=== PATIENT | female | born 2000 | race Two or more races ===

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

== ENCOUNTER 2021-11-16 20:46 | Emergency (ER) | payer MEDICAID, OTHER ==
[~2021-11-16] VITALS: Ht 167.6 cm; Wt 108.9 kg
[2021-11-16 21:25] LABS: Basophils # (auto) 0.1 10 ^3/uL (0-0.2); Basophils % (auto) 1.1 % (0.0-2.0); Eosinophils # (auto) 0.1 10 ^3/uL (0-0.8); Hematocrit 36.8 % (36.0-46.0); Hemoglobin 12.4 g/dL (12.2-16.2); Lymphocytes # (auto) 2.5 10 ^3/uL (0.4-5.4); Lymphocytes % (auto) 33.7 % (10.0-50.0); Mean Corpuscular Hemoglobin 29.3 pg (28.0-32.0); Mean Corpuscular Hgb Conc. 33.8 g/dL (32.0-36.0); Mean Corpuscular Volume 86.8 fL (80.0-100.0); Monocytes # (auto) 0.5 10 ^3/uL (0-1.3); Monocytes % (auto) 6.9 % (0.0-12.0); Neutrophils # (auto) 4.3 10 ^3/uL (1.6-8.6); Neutrophils % (auto) 57.3 % (37.0-80.0); Nucleated Red Blood Cells % 0.2 %; Red Blood Cells 4.24 10^6/uL (4.0-5.20); White Blood Cell 7.5 10^3/uL (4.4-10.8)
[2021-11-16 21:41] LABS: Calcium 9.3 mg/dL (8.5-10.1); Potassium 4.1 mmol/L (3.5-5.1)
[2021-11-16 21:44] LABS: BUN/Creatinine Ratio 14.5; Bilirubin, Total 0.3 mg/dL (0.2-1.0); Total Protein 7.6 g/dL (6.4-8.2)
[2021-11-16 23:06] LABS: Urine Bacteria FEW /hpf (None Seen); Urine Blood Negative /uL (Negative); Urine Specific Gravity 1.025 (1.001-1.035); Urine WBC 14 /hpf (0 - 5)
[2021-11-17] MEDS ORDERED: TRANEXAMIC ACID 1,000 MG in SODIUM CHL 0.9% 100 ML IV ONE (00:30)
[2021-11-17] MEDS ORDERED: TRANEXAMIC ACID 10 ML ONE (02:12)
[2021-11-17 02:40] VITALS: BP 109/54
== END 2021-11-17 03:17 | disposition home or self-care (01) ==
LOC: ER 20:46 → EEVIPCON 20:46 → ER 11-17 03:17
DX: N92.0 Excessive and frequent menstruation with regular cycle (principal)
CPT/HCPCS: 36415; 76830; 76856; 80053; 81001; 84702; 85025; 96365

== ENCOUNTER 2025-01-21 21:14 | Emergency (ER) | payer MEDICAID ==
[~2025-01-21] VITALS: Ht 167.6 cm; Wt 105.0 kg
[2025-01-21] MEDS: ONDANSETRON HCL 4 MG/2 ML VIAL IV ONE (22:51)
[2025-01-21] MEDS: MORPHINE SULFATE 4 MG/ML SYR/VIAL IV ONE (22:52)
[2025-01-21] MEDS: IOHEXOL 300 MG/ML 100ML BOTTLE IJ ONE (22:53)
[2025-01-21] MEDS: SODIUM CHLORIDE 0.9% 1,000 ML IVB ONE (22:53)
--- NOTE | 2025-01-21 22:55 | DVH ---
Exam: CT CT AB PEL WITH IV CON ONLY History: abd pain Comparison Study: None Technique: Multidetector spiral CT of the abdomen was performed from lung bases to pubic symphysis. A xial imaging was performed with intravenous contrast following the uneventful administration of 100 m l Omnipaque 300. Coronal and sagittal multiplanar reformats were obtained from the axial data set by the technologist. Radiation Dose : 1. Abdomen/Pelvis: CTDIvol 25.48 mGy, DLP 1681.48 mGy*cm. Findings: Lung Bases: Lung bases are clear. Visualized portions of the heart and pericardium are unremarkable. Liver: The liver is normal in size. No focal lesions. Gallbladder and Biliary Tree: Prior cholecystectomy. Spleen: Unremarkable Pancreas: The pancreas enhances normally and there are no focal lesions. The main pancreatic duct is not dilated Adrenal Glands: Unremarkable Kidneys: Kidneys enhance symmetrically. No calculi or hydronephrosis. GI tract: There is no bowel obstruction. The appendix is normal. There is submucosal fat deposition within the transverse and ascending colon suggesting chronic inflammation. Peritoneum/mesentery/retroperitoneum. No evidence of free intraperitoneal air. No ascites. No evidenc e of suspicious lymphadenopathy. Abdominal Wall: Unremarkable. Vasculature: Abdominal aorta and main branches are unremarkable. Normal vascular enhancement. Urinary Bladder: Grossly unremarkable for degree of distention. Pelvic Organs: There is a 2 cm involuting right ovarian cyst. Musculoskeletal: No aggressive focal bony lesions, acute fractures or dislocation. IMPRESSION: 1. No acute abdominal or pelvic findings. 2. Incidental findings as detailed.
[2025-01-21 22:58] LABS: Basophils # (auto) 0 10 ^3/uL (0-0.2); Basophils % (auto) 0.5 % (0.0-2.0); Eosinophils # (auto) 0 10 ^3/uL (0-0.8); Eosinophils % (auto) 0.6 % (0.0-7.0); Hematocrit 36.8 % (36.0-46.0); Hemoglobin 12.6 g/dL (12.2-16.2); Lymphocytes # (auto) 2.2 10 ^3/uL (0.4-5.4); Lymphocytes % (auto) 26.5 % (10.0-50.0); Mean Corpuscular Hgb Conc. 34.2 g/dL (32.0-36.0); Mean Corpuscular Volume 87.5 fL (80.0-100.0); Monocytes # (auto) 0.7 10 ^3/uL (0-1.3); Monocytes % (auto) 8.3 % (0.0-12.0); Neutrophils # (auto) 5.2 10 ^3/uL (1.6-8.6); Neutrophils % (auto) 64.1 % (37.0-80.0); Platelet Count (auto) 223 10^3/uL (140-450); Red Cell Distribution Width 12.8 % (11.8-14.3); White Blood Cell 8.1 10^3/uL (4.4-10.8)
[2025-01-21 23:11] LABS: Albumin 4.5 g/dL (3.2-4.8); Alkaline Phosphatase 94 U/L (46-116); Anion Gap 10 (5-15); BUN/Creatinine Ratio 8.4 (10.0-20.0); Bilirubin, Total 0.7 mg/dL (0.2-1.0); Calcium 9.3 mg/dL (8.7-10.4); Carbon Dioxide 25 mmol/L (20-31); Chloride 104 mmol/L (98-107); Glucose 98 mg/dL (74-106); Lipase 29 U/L (12-53); Sodium 139 mmol/L (136-145)
[2025-01-21 23:12] LABS: Alanine Aminotransferase 126 U/L (7-40); Aspartate Aminotransferase 67 U/L (<34); Blood Urea Nitrogen 7 mg/dL (9-23); Potassium 3.4 mmol/L (3.5-5.1)
[2025-01-21] MEDS ORDERED: GABA300T4 PO (23:32)
--- NOTE | 2025-01-22 00:19 | ED.PDOC ---
History of Present Illness HPI Comments 24 y/o obese F, with a history of cholecystectomy and pancreatitis, presents with nonradiating, epigastric abdominal pain. Patient endorses on unprovoked and sudden onset of symptoms, this evening, but has had similar pain for the past few days. She states on being evaluated at [facility] and being diagnosed with Pancreatitis but was never treated. Denies any nausea, vomiting, diarrhea, constipation, urinary symptoms, fever, chills, or further associated symptoms. Chief Complaint: Abdominal Pain Time Seen by MD: 22:00 Reviewed Notes: Nurses Notes, Medications, Allergies Allergies: Coded Allergies: NO KNOWN ALLERGIES (Unverified , 11/01/17) Home Meds Active Scripts Gabapentin (Once-Daily) (Gabapentin) 300 Mg Tab, 300 MG PO Q6HP PRN, #60 TAB Prov:MARGA ECHEVERRIA MD 01/21/25 Information Source: Patient Mode of Arrival: Ambulatory Severity: Moderate Timing: Hours Duration: Since onset Prehospital treatment: None Past Medical History PAST MEDICAL HISTORY: Anemia Past Medical History (Other): pancreatitis Surgical History: Cholecystectomy TELETYPE OR VARITYPE KEYBOARD OPERATOR History: No Pertinent TELETYPE OR VARITYPE KEYBOARD OPERATOR History Family History Family History: Reviewed,noncontributory to illness Social History Smoker: Non-Smoker Alcohol: Denies ETOH Use Drugs: Denies Drug Use Lives In: Home All Other Systems: Reviewed and Negative (Comprehensive systems review obtained and negative except for what is stated in the HPI.) Physical Exam General Appearance: Moderate Distress, Obese HEENT: Normal ENT Inspection, Pharynx Normal, TMs Normal Neck: Full Range of Motion, Non-Tender, Normal, Normal Inspection Respiratory: Chest Non-Tender, Lungs Clear, No Accessory Muscle Use, No Respiratory Distress, Normal Breath Sounds Cardiovascular: No Edema, No JVD, No Murmur, No Gallop, Normal Peripheral Pulses, Regular Rate/Rhythm Breast Exam: Deferred Gastrointestinal: Epigastric (tenderness ), No Organomegaly, No Pulsatile Mass, Normal Bowel Sounds, Soft, Tenderness (epigastric region) Genitalia: Deferred Pelvic: Deferred Rectal: Deferred Extremities: No calf tenderness, Normal capillary refill, Normal inspection, Normal range of motion, Non-tender, No pedal edema Musculoskeletal : Apperance: Normal Neurologic: Alert, petroleum transport driver II-XII nml as Tested, No Motor Deficits, Normal Affect, Normal Mood, No Sensory Deficits Cerebellar Function: Normal Reflexes: Normal Skin: Dry, Normal Color, Warm Lymphatic: No Adenopathy Was a procedure done? Was a procedure done?: No Differential Dx Considerations may include: gastritis, gastroenteritis, GERD, PUD, cholelithiasis, among others X-Ray, Labs, Meds, VS Vital Signs Date Time Temp Pulse Resp B/P (MAP) Pulse Ox O2 Delivery O2 Flow Rate FiO2 01/21/25 22:52 81 16 110/58 01/21/25 21:49 99.9 114 20 138/86 (103) 97 99.9 Lab Test 01/21/25 22:35 Range/Units White Blood Count 8.1 4.4-10.8 10^3/uL Red Blood Count 4.20 4.0-5.20 10^6/uL Hemoglobin 12.6 12.2-16.2 g/dL Hematocrit 36.8 36.0-46.0 % Mean Corpuscular Volume 87.5 80.0-100.0 fL Mean Corpuscular Hemoglobin 30.0 28.0-32.0 pg Mean Corpuscular Hemoglobin Concent 34.2 32.0-36.0 g/dL Red Cell Distribution Width 12.8 11.8-14.3 % Platelet Count 223 140-450 10^3/uL Mean Platelet Volume 9.5 6.9-10.8 fL Neutrophils (%) (Auto) 64.1 37.0-80.0 % Lymphocytes (%) (Auto) 26.5 10.0-50.0 % Monocytes (%) (Auto) 8.3 0.0-12.0 % Eosinophils (%) (Auto) 0.6 0.0-7.0 % Basophils (%) (Auto) 0.5 0.0-2.0 % Neutrophils # (Auto) 5.2 1.6-8.6 10 ^3/uL Lymphocytes # (Auto) 2.2 0.4-5.4 10 ^3/uL Monocytes # (Auto) 0.7 0-1.3 10 ^3/uL Eosinophils # (Auto) 0 0-0.8 10 ^3/uL Basophils # (Auto) 0 0-0.2 10 ^3/uL Nucleated Red Blood Cells 0.0 % Sodium Level 139 136-145 mmol/L Potassium Level 3.4 L 3.5-5.1 mmol/L Chloride Level 104 98-107 mmol/L Carbon Dioxide Level 25 20-31 mmol/L Anion Gap 10 5-15 Blood Urea Nitrogen 7 L 9-23 mg/dL Creatinine 0.83 0.550-1.02 mg/dL Glomerular Filtration Rate Calc 102 >90 mL/min BUN/Creatinine Ratio 8.4 L 10.0-20.0 Serum Glucose 98 74-106 mg/dL Calcium Level 9.3 8.7-10.4 mg/dL Total Bilirubin 0.7 0.2-1.0 mg/dL Aspartate Amino Transferase (AST) 67 H <34 U/L Alanine Aminotransferase (ALT) 126 H 7-40 U/L Alkaline Phosphatase 94 46-116 U/L Total Protein 7.0 5.7-8.2 g/dL Albumin 4.5 3.2-4.8 g/dL Lipase 29 12-53 U/L Current Medications Medications (Trade) Dose Ordered Sig/Toño Route Start Time Stop Time Status Last Admin Ondansetron HCl (Zofran) 4 mg ONCE ONCE IV 01/21/25 22:15 01/21/25 22:16 DC 01/21/25 22:51 Sodium Chloride 1,000 ml @ 1,000 mls/hr Q1H ONCE IVB 01/21/25 22:15 01/21/25 23:14 DC 01/21/25 22:53 Morphine Sulfate 4 mg ONCE ONCE IV 01/21/25 22:15 01/21/25 22:16 DC 01/21/25 22:52 [place] [address] Ph: [phone] DIAGNOSTIC IMAGING Diagnostic Imaging Report : [id number] Signed PATIENT: TRA JACOBCCT: [id number] UNIT: [id number] : 2000 LOC: ER ROOM / BED: / AGE / SEX: 24 / F ADM STATUS: REG ER SERVICE 05 ORDERING PHYSICIAN: MARGA ECHEVERRIA MD PROCEDURE(s): ABPLIV - CT AB PEL WITH IV CON ONLY REASON: abd pain ORDER NUMBER(s): [id number], ACCESSION NUMBER(s): [id number] Exam: CT CT AB PEL WITH IV CON ONLY History: abd pain Comparison Study: None Technique: Multidetector spiral CT of the abdomen was performed from lung bases to pubic symphysis. Axial imaging was performed with intravenous contrast following the uneventful administration of 100 ml Omnipaque 300. Coronal and sagittal multiplanar reformats were obtained from the axial data set by the technologist. Radiation Dose : 1. Abdomen/Pelvis: CTDIvol 25.48 mGy, DLP 1681.48 mGy*cm. Findings: Lung Bases: Lung bases are clear. Visualized portions of the heart and pericardium are unremarkable. Liver: The liver is normal in size. No focal lesions. Gallbladder and Biliary Tree: Prior cholecystectomy. Spleen: Unremarkable Pancreas: The pancreas enhances normally and there are no focal lesions. The main pancreatic duct is not dilated Adrenal Glands: Unremarkable Kidneys: Kidneys enhance symmetrically. No calculi or hydronephrosis. GI tract: There is no bowel obstruction. The appendix is normal. There is submucosal fat deposition within the transverse and ascending colon suggesting chronic inflammation. Peritoneum/mesentery/retroperitoneum. No evidence of free intraperitoneal air. No ascites. No evidence of suspicious lymphadenopathy. Abdominal Wall: Unremarkable. Vasculature: Abdominal aorta and main branches are unremarkable. Normal vascular enhancement. Urinary Bladder: Grossly unremarkable for degree of distention. Pelvic Organs: There is a 2 cm involuting right ovarian cyst. Musculoskeletal: No aggressive focal bony lesions, acute fractures or dislocation. IMPRESSION: 1. No acute abdominal or pelvic findings. 2. Incidental findings as detailed. ATED BY: YAAKOV POWELL MD DICTATED DATE/TIME: 01/21/252254 SIGNED BY: YAAKOV POWELL MD SIGNED DATE/TIME: 01/21/252254 CC: Time of 1ST Reevaluation: 00:15 Reevaluation 1ST: Improved Patient Education/Counseling: Diagnosis, Treatment, Need For Follow Up Family Education/Counseling: No Family Present SEPSIS Sepsis Screen Date sepsis recognized/suspect: Jan 21, 2025 Time Sepsis recognized/suspect: 2148 Recent Procedure: No On Antibiotic Therapy: No Respiratory Rate >20: No Heart Rate >90: Yes Temp<36 C (96.8 F) or >38.3 C: No SBP <90 or MAP <65 mmHG: No New Acute Mental Status Change: No Is the patient on CPAP, BIPAP,: No Orders/Vitals/Labs Physician Orders Ct Ab Pel With Iv Con Only (01/21/25 22:06) Vital Signs Date Time Temp Pulse Resp B/P (MAP) Pulse Ox O2 Delivery O2 Flow Rate FiO2 01/21/25 22:52 81 16 110/58 01/21/25 21:49 99.9 114 20 138/86 (103) 97 99.9 Laboratory Tests Test 01/21/25 22:35 White Blood Count 8.1 10^3/uL (4.4-10.8) Medications Medications Dose Ordered Sig/Toño Route Start Time Stop Time Status Last Admin Dose Admin Morphine Sulfate 4 mg ONCE ONCE IV 01/21/25 22:15 01/21/25 22:16 DC 01/21/25 22:52 Ondansetron HCl 4 mg ONCE ONCE IV 01/21/25 22:15 01/21/25 22:16 DC 01/21/25 22:51 Sodium Chloride 1,000 ml @ 1,000 mls/hr Q1H ONCE IVB 01/21/25 22:15 01/21/25 23:14 DC 01/21/25 22:53 Departure 1 Departure Time of Disposition: 00:15 Impression: Primary Impression: Ovarian cyst Additional Impression: Abdominal pain Disposition: HOME / SELF CARE / HOMELESS Condition: Stable Additional Instructions: Your lab results today were reassuring. Your CT today showed: GI tract: There is no bowel obstruction. The appendix is normal. There is submucosal fat deposition within the transverse and ascending colon suggesting chronic inflammation. Peritoneum/mesentery/retroperitoneum. No evidence of free intraperitoneal air. No ascites. No evidence of suspicious lymphadenopathy. Abdominal Wall: Unremarkable. Vasculature: Abdominal aorta and main branches are unremarkable. Normal vascular enhancement. Urinary Bladder: Grossly unremarkable for degree of distention. Pelvic Organs: There is a 2 cm involuting right ovarian cyst. Musculoskeletal: No aggressive focal bony lesions, acute fractures or dislocation. IMPRESSION: 1. No acute abdominal or pelvic findings. Follow up with your Primary Physician Return to the Emergency Department for any worsening symptoms or concerns e-Prescriptions Gabapentin (Once-Daily) (Gabapentin) 300 Mg Tab 300 MG PO Q6HP PRN, #60 TAB Prov: MARGA ECHEVERRIA MD 01/21/25 Critical Care Note Critical Care Time?: No Stability Stability form required: No Heart Score Heart Score: Heart Score Response (Comments) Value History N/A 0 EKG N/A 0 Age N/A 0 Risk Factors N/A 0 Troponin N/A 0 Total 0 I personally scribed for MARGA ECHEVERRIA MD ([email or web address]) on 01/22/25 at 00:19. Electronically submitted by Matt Alvares ([email or web address]). MARGA ECHEVERRIA MD Jan 22, 2025 00:19
[2025-01-22 00:49] VITALS: BP 114/58; PULSE 60; RESP 20; TEMP 98; O2SAT 98
== END 2025-01-22 00:51 | disposition home or self-care (01) ==
LOC: ER 21:14
DX: N83.201 Unspecified ovarian cyst, right side (principal); R10.13 Epigastric pain; E66.9 Obesity, unspecified; Z68.37 Body mass index [BMI] 37.0-37.9, adult; Z86.2 Personal history of diseases of the blood and blood-forming organs and certain disorders involving the immune mechanism; Z87.19 Personal history of other diseases of the digestive system; Z90.49 Acquired absence of other specified parts of digestive tract; Z79.899 Other long term (current) drug therapy
CPT/HCPCS: 36415; 74177; 80053; 83690; 85025; 96361; 96374; 96375; 99285; J2270; J2405; J7030; Q9967